=== PATIENT | female | born 1970 | race Caucasian/White ===

== ENCOUNTER 2018-02-12 23:45 | Inpatient (IN) | END 2018-02-19 16:10 | DRG 494 ==

== ENCOUNTER 2018-02-19 16:33 | Inpatient (IN) | END 2018-02-23 19:17 | disposition home health service (06) | DRG 561 ==

== ENCOUNTER → 2018-03-11 | Outpatient (CLI) | END | disposition home or self-care (01) ==

== ENCOUNTER → 2018-03-30 | Outpatient (CLI) | payer OTHER ==
[~2018-03-30] MED LIST: ALPR1TAB7 PO; CARV6.2579 PO
--- NOTE | 2018-03-30 18:46 | CONS ---
Date/Time of Note Date/Time of Note DATE: 03/30/18 TIME: 18:41 Consult Date/Type/Reason Admit Date/Time Initial Consult Date Subjective 47-year-old female 6 weeks status post percutaneous elevation fixation of left medial plateau fracture. Overall she is doing very well. Her pain has decreased. She has remained nonweightbearing as instructed. She is wearing her brace at all times. She is performing range of motion exercises. Denies fevers and chills. She has continued her DVT prophylaxis with Lovenox. Patient states her swelling has also decreased. Objective Exam General: Alert, oriented x3. No Acute Distress. Heart: Regular rate and rhythm. Lungs: No respiratory distress. No accessory muscle use. Left lower Extremity: Incision is clean, dry, intact. No skin breakdown, no surrounding erythema. Sensation intact to light touch in a sural, saphenous, deep peroneal, superficial peroneal, medial and lateral plantar nerve distribution. Motor is intact, patient able to dorsiflex and plantarflex ankle and extend and flex great toe. Dorsalis Pedis pulse +2, Brisk capillary refill. Compartments are soft. Results/Medications Results 24 hrs The patient received a standard set of films today that were personally reviewed. Imaging included a left knee AP, PA flexion, merchant views and a dedicated lateral of the affected knee: Demonstrate status post elevation of medial tibial plateau with calcium phosphate and rafting screws. The fracture did subside couple millimeters compared to immediate post op films. No significant change from last xray. No change from last xray on 03/11/18 Assessment/Plan Chief Complaint/Hosp Course This is a 47-year-old female who sustained a left knee dislocation that resulted in a Schatzker 4 tibial plateau fracture as well as a multi-ligamentous injury including ACL posterior lateral corner. She is 6 weeks status post percutaneous elevation fixation of the medial tibial plateau fracture. Difficult to tell for sure but does appear that the fragment has subsided a millimeter or 2. At this point I would not intervene as if it heals in this position may be better than a revision surgery. She is to continue the hinged knee brace at all times to prevent hyperextension and varus and valgus stress in order to allow her ligamentous injury to heal. She will remain nonweightbearing left lower extremity. A 12 weeks if x-rays look good patient will be allowed to start bearing weight. At that time her ligamentous injury will be better evaluated and if she continues to have instability she will need to see an orthopedic sports surgeon for reconstruction of her ACL and posterior lateral corner. Patient is to follow-up in 3 weeks with x-rays 4 views of the left knee. Strict nonweightbearing left lower extremity Hinged knee brace on at all times. JOSH Caceres MD Mar 30, 2018 18:46
--- NOTE | 2018-03-31 10:18 | RADRPT ---
PROCEDURE: Left knee series CLINICAL INDICATION: Pain TECHNIQUE: AP, AP weightbearing, PA axial weightbearing, lateral weightbearing and sunrise views of the left knee were obtained COMPARISON: Left knee series 03/11/2018 FINDINGS: Again noted are 2 transverse fixation screws involving the proximal left tibia and bone cement and th e proximal left tibia. Progressive healing fracture of the medial tibial plateau. No other fractures or dislocations. No focal bony blastic or lytic lesions. No evidence of a left knee joint effusion. S oft tissues are unremarkable. IMPRESSION: Fixation of the proximal left tibia with continued healing medial tibial plateau fracture. No other f racture, dislocation or joint effusion. RPTAT:AAJJ Physician Juana Date Time Electronically viewed and signed by Physician Juana on 03/31/2018 10:17 BM/
== END | disposition home or self-care (01) ==
LOC: HKI 16:05
PROVIDERS: ATTEND Orthopaedic Surgery Adult Reconstructive Orthopaedic Surgery
DX: S82.142D Displaced bicondylar fracture of left tibia, subsequent encounter for closed fracture with routine healing (principal); X58.XXXD Exposure to other specified factors, subsequent encounter
CPT/HCPCS: 73564; G0463

== ENCOUNTER 2018-04-08 19:13 | Emergency (ER) | payer OTHER ==
[~2018-04-08] VITALS: Ht 154.9 cm; Wt 90.9 kg
[2018-04-08 19:15] VITALS: BP 207/119; PULSE 102; RESP 20; Ht 154.9 cm; Wt 90.9 kg
== END 2018-04-08 20:45 | disposition left against medical advice (07) ==
LOC: E/R 19:13
DX: Z53.21 Procedure and treatment not carried out due to patient leaving prior to being seen by health care provider (principal)
CPT/HCPCS: 93005

== ENCOUNTER → 2018-04-27 | Outpatient (CLI) | payer OTHER, MEDICAID ==
--- NOTE | 2018-04-27 18:04 | CONS ---
Consult Date/Type/Reason Admit Date/Time Initial Consult Date Date/Time of Note DATE: 04/27/18 TIME: 17:59 Subjective 39-year-old female 10 weeks status post percutaneous elevation and fixation of left medial tibial plateau fracture. The patient is doing much better today from a pain standpoint and she has been previously. She has remained nonweightbearing as instructed. She has been performing range of motion exercises of her knee as instructed. She has been wearing the brace at all times as instructed. Her swelling has decreased. Denies numbness and tingling. Denies fevers and chills. Objective Exam General: Alert, oriented x3. No Acute Distress. Heart: Regular rate and rhythm. Lungs: No respiratory distress. No accessory muscle use. Left lower Extremity: Incision is clean, dry, intact. No skin breakdown, no surrounding erythema. Sensation intact to light touch in a sural, saphenous, deep peroneal, superficial peroneal, medial and lateral plantar nerve distribution. Motor is intact, patient able to dorsiflex and plantarflex ankle and extend and flex great toe. Dorsalis Pedis pulse +2, Brisk capillary refill. Compartments are soft. Results/Medications Home Meds Reported Medications Alprazolam* (Alprazolam*) 1 Mg Tablet, 1 MG PO DAILY PRN for ANXIETY, TAB 02/12/18 Carvedilol* (Carvedilol*) 6.25 Mg Tablet, 6.25 MG PO BID, #60 TAB 02/12/18 Imaging The patient received a standard set of films today that were personally reviewed. Imaging included a left knee AP, PA flexion, merchant views and a dedicated lateral of the affected knee: Demonstrate status post elevation of medial tibial plateau with calcium phosphate and rafting screws. The fracture did subside couple millimeters compared to immediate post op films. No significant change from last xray. Assessment/Plan Hospital Course (Demo Recall) This is a 47-year-old female 10 weeks status post percutaneous elevation and fixation of left medial tibial plateau fracture and multi-ligamentous injury. Overall she is doing very well. The fracture is healing well. At this time she is to remain nonweightbearing for another 2 weeks. In 2 weeks she can start physical therapy and begin partial weightbearing with an increase to 50% weightbearing at the end of those 2 weeks. She is then to return to clinic for repeat x-rays. At that time ligamentous instability will also be further evaluated. She will likely need an authorization to see a sports surgeon for multi-ligamentous injury. JOSH REYNA MD Apr 27, 2018 18:04
--- NOTE | 2018-04-28 18:44 | RADRPT ---
PROCEDURE: XR knee CLINICAL INDICATION: Left knee pain. TECHNIQUE: 4 views of the left knee were obtained. COMPARISON: 03/30/2018 FINDINGS: There is no acute fracture or dislocation. Healing internally stabilized tibial plateau fracture is u nchanged in position and alignment since the prior examination. 2 partially threaded surgical screws remain in place. Bone cement in proximal tibia is unchanged. There is periarticular osteopenia. There is a small knee joint effusion. IMPRESSION: 1. Healing internally stabilized tibial plateau fracture. 2. Moderate medial tibiofemoral compartment osteoarthritis. 3. Periarticular osteopenia. 4. Small knee joint effusion. RPTAT:HAJM Physician Teodora Date Time Electronically viewed and signed by Physician Teodora on 04/28/2018 18:43 /
== END | disposition home or self-care (01) ==
LOC: HKI 09:06
PROVIDERS: ATTEND Orthopaedic Surgery Adult Reconstructive Orthopaedic Surgery
DX: S82.142D Displaced bicondylar fracture of left tibia, subsequent encounter for closed fracture with routine healing (principal); X58.XXXD Exposure to other specified factors, subsequent encounter

== ENCOUNTER → 2018-06-04 | Outpatient (CLI) | payer MEDICAID, OTHER | END | disposition home or self-care (01) | LOC: HKI 14:20 | PROVIDERS: ATTEND Orthopaedic Surgery Adult Reconstructive Orthopaedic Surgery | DX: M25.562 Pain in left knee (principal) | CPT/HCPCS: G0463 ==

== ENCOUNTER → 2018-08-20 | Outpatient (CLI) | payer OTHER ==
--- NOTE | 2018-08-21 00:01 | RADRPT ---
PROCEDURE: XR Knee. CLINICAL INDICATION: Left knee pain TECHNIQUE: Three views of the left knee are available for review. COMPARISON: None available FINDINGS: There is no acute fracture or dislocation. There are 2 screws traversing across the proximal tibial metaphysis as well as a bone cement just above the screws. There is moderate joint space narrowing of the medial compartment. There is mild joint space narrowin g of the lateral and patellofemoral compartments. Bones are osteopenic. There is a small joint effus ion. The soft tissues are unremarkable. RPTAT: ZZ IMPRESSION: 1. No acute bony abnormality. 2. Postsurgical changes involving the proximal tibia, unchanged. 3. Moderate medial compartment osteoarthrosis. 4. Osteopenia. .Ana Contreras MD, MD Date Time Electronically viewed and signed by .Ana Contreras MD, on 08/21/2018 00:01 .T/
--- NOTE | 2018-08-21 15:58 | CONS ---
Consult Date/Type/Reason Admit Date/Time Initial Consult Date Date/Time of Note DATE: 08/21/18 TIME: 15:54 Subjective 47-year-old female following up 6 months status post percutaneous elevation and fixation of medial tibial plateau fracture she has been weightbearing as tolerated as well as multi-ligamentous injury. Patient states that she has no pain medially. But continues to use a walker and cane. When bearing weight she has no pain medially as well. All of her pain is laterally. She feels that her knee continues to be unstable and weak. Overall she does feel better. Denies numbness and tingling. Objective Exam General: Alert, oriented x3. No Acute Distress. Heart: Regular rate and rhythm. Lungs: No respiratory distress. No accessory muscle use. Left lower Extremity: ROM 3-90 degrees. There is slight laxity with a couple of mm opening laterally when the LCL is stressed. Incisions healed. No skin breakdown, no surrounding erythema. Sensation intact to light touch in a sural, saphenous, deep peroneal, superficial peroneal, medial and lateral plantar nerve distribution. Motor is intact, patient able to dorsiflex and plantarflex ankle and extend and flex great toe. Dorsalis Pedis pulse +2, Brisk capillary Results/Medications Home Meds Reported Medications Alprazolam* (Alprazolam*) 1 Mg Tablet, 1 MG PO DAILY PRN for ANXIETY, TAB 02/12/18 Carvedilol* (Carvedilol*) 6.25 Mg Tablet, 6.25 MG PO BID, #60 TAB 02/12/18 Imaging The patient received a standard set of films today that were personally reviewed. Imaging included a left knee AP, PA flexion, merchant views and a dedicated lateral of the affected knee: Demonstrate status post elevation of medial tibial plateau with calcium phosphate and rafting screws. The fracture is healed. The fracture did subside couple millimeters compared to immediate post op films. No change in displacement from last xray. Assessment/Plan Hospital Course (Demo Recall) 47-year-old female 6 months status post percutaneous elevation and fixation of left medial tibial plateau fracture. The fracture is healed. Her continued symptoms are secondary to instability from her multi-ligamentous injury including her ACL and posterior lateral corner. At this time since she has not improved from a stability standpoint with conservative treatment I am recommending that she be referred to orthopedic sports surgeon for further evaluation and treatment of her multi-ligamentous instability. JOSH REYNA MD Aug 21, 2018 15:58
== END | disposition home or self-care (01) ==
LOC: HKI 15:11
PROVIDERS: ATTEND Orthopaedic Surgery Adult Reconstructive Orthopaedic Surgery
DX: S82.142D Displaced bicondylar fracture of left tibia, subsequent encounter for closed fracture with routine healing (principal)
CPT/HCPCS: 73564; G0463